=== PATIENT | male | born 1990 | race African-American/Black ===

== ENCOUNTER 2018-01-21 09:28 | Emergency (ER) | payer SELFPAY ==
[2018-01-21 09:56] LABS: #Basophils 0.1 thou/uL (0.0-0.2); #Eosinphils 0.4 thou/uL (0.0-0.7); #Lymphocytes 2.6 thou/uL (1.20-3.40); #Monocytes 0.5 thou/uL (0.11-0.59); #Neutrophils 3.9 thou/uL (1.40-6.50); %Basophils 1.7 % (0.0-1.0); %Eosinophils 5.3 % (0.0-10.0); %Lymphocytes 34.7 % (21.0-51.0); %Monocytes 6.3 % (0.0-10.0); Hemoglobin 14.1 g/dL (14.0-18.0); Mean Corpuscular HGB CONC 31.1 g/dL (32.0-36.0); Mean Corpuscular Hemoglobin 28.5 pg (27.0-31.0); Mean Corpuscular Volume 91.6 fl (80.0-94.0); Platelet Count 189 thou/uL (130-400); RBC Distribution Width 13.1 % (11.5-14.5); Red Blood Cell (RBC) Count 4.96 mill/uL (4.70-6.10); White Blood Cell (WBC) Count 7.4 thou/uL (4.8-10.8)
[2018-01-21 10:23] LABS: ALT (SGPT) 26 U/L (8-55); AST (SGOT) 46 U/L (5-34); Alkaline Phosphatase 78 U/L (40-150); Anion Gap 12 mmol/L (10-20); BUN (Urea Nitrogen) 20 mg/dL (8.9-20.6); Bilirubin, Total 0.4 mg/dL (0.2-1.2); Calc. Creatinine Clearance 0 mL/min (70-130); Calcium 9.4 mg/dL (7.8-10.44); Carbon Dioxide 26 mmol/L (22-29); Chloride 103 mmol/L (98-107); Estimated GFR-MDRD 75; Globulin 3.9 g/dL (2.4-3.5); Glucose 94 mg/dL (70-105); Potassium 4.9 mmol/L (3.5-5.1); Protein, Total 7.9 g/dL (6.0-8.3); Sodium 136 mmol/L (136-145)
[2018-01-21] MEDS ORDERED: cefTRIAXone\\ROCEPHIN 250 MG VIAL ONE (11:10)
[2018-01-21] MEDS ORDERED: Lidocaine 1% PF 5 ML VIAL ONE (11:10)
[2018-01-21 11:28] LABS: Bilirubin Negative (Negative); Blood, Urine Negative (Negative); Clarity CLEAR (Clear); Glucose, Urine (Dipstick) Negative (Negative); Leukocyte Trace (Negative); Nitrite Negative (Negative); Protein, Urine (Dipstick) Trace mg/dL (Neg-Trace); Specific Gravity, Urine 1.031 (1.002-1.036); Urobilinogen 0.2 mg/dL (0.2-1.0); pH, Urine 6.5 (5.0-9.0)
[2018-01-21 11:33] LABS: Bacteria/HPF None Seen HPF (None Seen); Hyaline Casts/LPF 0-3 HYALINE CAST LPF (0-3 Hyaline); RBC/HPF 0-3 HPF (0-3); Squamous Epithelial 0-3 HPF (0-3)
== END 2018-01-21 13:56 | disposition home or self-care (01) ==
LOC: ERS 09:28
DX: R30.0 Dysuria (principal)
CPT/HCPCS: 36415; 80053; 81003; 81015; 85025; 96372; J0696; J2001